=== PATIENT | male | born 1925 | race Caucasian/White ===

== ENCOUNTER 2016-07-09 13:39 | Inpatient (IN) | payer OTHER ==
[~2016-07-09] VITALS: Ht 177.8 cm; Wt 83.0 kg
[~2016-07-09 13:39] MED LIST: ALLERGY RELIE15.8 ML BOTH NARES; ALPRAZOLAM0.25 M2 PO; ALPRAZOLAM0.5 MG PO; AMBIEN5 MG PO; ASPIRIN EC325 MG PO; ASPIRIN81 M2 PO; BENTYL20 MG PO; CARBIDOPA-LEVO1 EA14 PO; CARBIDOPA-LEVO1 EA16 PO; CARDIZEM CD,CA120 MG PO; CARDIZEM SR120 MG PO; CARTIA XT120 MG PO; CEFDINIR300 MG PO; CENTRUM SILVER1 EACH PO; CIPRO500 MG PO; CLONAZEPAM0.5 MG PO; CLOPIDOGREL75 MG PO; CYMBALTA30 MG PO; CYMBALTA60 MG PO; DICYCLOMINE HCL20 MG PO; DILAUDID2 MG PO; DILTIAZEM 24HR120 MG PO; DOCUSATE SODIU100 MG PO; ENTACAPONE200 MG PO; GABAPENTIN100 MG PO; GINKGO BILOBA30 MG PO; HEPARIN SO5000 UNITS SC; HUMULIN 70100 UNIT/1 SQ; HUMULIN 70100 UNIT/2 SC; HYDROCODON-ACE1 EAC8 PO; HYDROMORPHONE HC2 MG PO; IMDUR30 MG PO; ISOSORBIDE DINI30 MG PO; KADIAN10 MG PO; KLONOPIN0.5 M1 PO; LEVEMIR100 UNIT/2 SC; LINZESS145 MCG PO; LINZESS290 MCG PO; LO-DOSE ASPIRIN81 M1 PO; LOPERAMIDE2 M1 PO; LORAZEPAM0.5 MG PO; LYRICA50 MG PO; MECLIZINE HCL25 MG PO; METOCLOPRAMIDE10 MG PO; METRONIDAZOLE500 MG PO; MEVACOR40 MG PO; MILK OF MAGNESI10 ML PO; MIRTAZAPINE7.5 MG PO; NEURONTIN100 MG PO; NOVOLOG PE100 UNITS/ SC; OMEPRAZOLE20 M2 PO; OMEPRAZOLE20 MG PO; OMEPRAZOLE40 M1 PO; PAROXETINE HCL20 MG PO; PAXIL20 MG PO; PLAVIX75 MG PO; POLYETHYLENE GL17 GM PO; PRILOSEC20 MG PO; PRIMIDONE50 MG PO; PROMETHAZINE HC25 M1 PO; PROPRANOLOL HCL10 MG PO; PROPRANOLOL HCL20 MG PO; REGLAN10 MG PO; ROPINIROLE HCL0.5 MG PO; SENOKOT,SENN1 TABLET PO; SIMVASTATIN20 MG PO; SIMVASTATIN40 MG PO; STALEVO 200 TA1 EACH PO; STALEVO PO; STOOL SOFTENER100 MG PO; TYLENOL REGULA325 MG PO; TYLENOL WITH C1 EACH PO; VICODIN ES 7.51 EAC1 PO; XANAX0.25 MG PO; ZOFRAN ODT4 MG PO; ZOFRAN4 MG PO; ZOLPIDEM TARTRAT5 MG PO
[2016-07-09 14:21] LABS: EOSINOPHIL (%) 1.1 % (0-5); EOSINOPHIL COUNT 0.1 K/uL (0-0.3); HEMATOCRIT 41.4 % (38.0-50.0); IMMATURE GRANULOCYTE (%) 0.5 % (0.0-0.7); IMMATURE GRANULOCYTE COUNT 0.1 K/uL; INSTRUMENT ABS NEUTROPHIL CT 10.2 K/uL; LYMPHOCYTE COUNT 0.8 K/uL (1.0-2.8); MCH 29.8 PG (29.0-34.0); MCHC 32.1 G/DL (30.0-36.0); MCV 92.6 FL (86-99); MEAN PLAT.VOLUME 10.6 uM^3 (9.0-12.4); MONOCYTE (%) 7.4 % (3-12); MONOCYTE COUNT 0.9 K/uL (0-0.8); NEUTROPHIL (%) 84.1 % (45-76); NEUTROPHIL COUNT 10.2 K/uL (1.8-6.4); PLATELET COUNT 192 K/uL (156-360); RBC DIS.WIDTH-CV 13.3 % (11.8-14.6); RBC DIS.WIDTH-SD 45.3 % (39-53); RED BLOOD COUNT 4.47 M/uL (4.00-5.50); WHITE BLOOD COUNT 12.1 K/uL (4.1-10.2)
[2016-07-09 14:33] LABS: CHLORIDE 106 mEq/L (99-109); POTASSIUM 5.4 mEq/L (3.7-5.4); SODIUM 139 mEq/L (136-147)
[2016-07-09 14:35] LABS: GLUCOSE 281 mg/dL (70-99)
[2016-07-09 14:37] LABS: ANION GAP 11 MEQ/L (2-14); TOTAL BILIRUBIN 0.3 mg/dL (0.0-1.0)
[2016-07-09 14:39] LABS: ALKALINE PHOSPHATASE 99 IU/L (3-129); GFR ESTIMATE (CALCULATED) 32 mL/min/
[2016-07-09 14:40] LABS: UREA NITROGEN (BUN) 41 mg/dL (9-23)
[2016-07-09 14:48] LABS: TROP-I INTERPRETATION NEGATIVE; TROPONIN-I 0.04 ng/mL (0.0-0.30)
[2016-07-09] MEDS ORDERED: FLAGYL500 MG PO (16:41)
[2016-07-09] MEDS ORDERED: CIPRO500 MG PO (16:41)
[2016-07-09] MEDS ORDERED: PROTONIX20 MG PO (16:43)
[2016-07-09] MEDS ORDERED: FLORASTOR250 MG PO (16:44)
[2016-07-09] MEDS ORDERED: CARTIA XT120 MG PO (16:45)
[2016-07-09] MEDS ORDERED: XANAX0.25 MG PO (16:47)
[2016-07-09] MEDS ORDERED: BASAGLAR K100 UNIT/1 SC ×2 (16:48→16:58)
[2016-07-09] MEDS ORDERED: MULTIVITAMIN1 EAC2 PO (16:49)
[2016-07-09] MEDS ORDERED: FLUOXETINE HCL20 MG PO (16:50)
[2016-07-09] MEDS ORDERED: FLUOXETINE HCL10 MG PO (16:50)
[2016-07-09] MEDS ORDERED: SENNA8.6 MG PO (16:51)
[2016-07-09] MEDS ORDERED: ACETAMINOPHEN325 M1 PO (16:53)
[2016-07-09] MEDS ORDERED: ROPINIROLE HCL0.5 MG PO (16:53)
[2016-07-09] MEDS ORDERED: CARBIDOPA-LEVO1 EA16 PO (16:54)
[2016-07-09] MEDS ORDERED: ATORVASTATIN CA10 MG PO (17:00)
[2016-07-09] MEDS ORDERED: MELATONIN5 M1 PO (17:00)
[2016-07-09] MEDS ORDERED: STALEVO PO (17:21)
[2016-07-09 17:43] LABS: ADD MIUA? YES; BILIRUBIN NEGATIVE; BLOOD SMALL; COLOR YELLOW ((YELLOW)); GLUCOSE (STRIP) 150; KETONES NEGATIVE; LEUKOCYTES NEGATIVE; NITRITE NEGATIVE; PROTEIN (STRIP) >=500; SPECIFIC GRAVITY 1.016 (1.000-1.030); UROBILINOGEN 0.2 MG/DL (0.2-1.0)
[2016-07-09 18:09] LABS: BACTERIA RARE /HPF; EPITHELIAL CELLS RARE /HPF; GRANULAR CASTS 0-5 /LPF; HYALINE CASTS 0-5 /LPF; MUCUS TRACE /LPF; RED BLOOD CELLS 0-5 /HPF (0-5); UCUL ADDED? NO; WHITE BLOOD CELLS 0-5 /HPF (0-5)
[2016-07-10] VITALS (8 sets, daily range): BP systolic 135–224; BP diastolic 66–120
[2016-07-10 06:36] LABS: POINT-OF-CARE METER ID UU13113725
[2016-07-10 08:43] LABS: HEMATOCRIT 40.4 % (38.0-50.0); MCH 30.2 PG (29.0-34.0); MCHC 32.9 G/DL (30.0-36.0); MCV 91.8 FL (86-99); MEAN PLAT.VOLUME 11.6 uM^3 (9.0-12.4); PLATELET COUNT 201 K/uL (156-360); RBC DIS.WIDTH-CV 13.4 % (11.8-14.6); RBC DIS.WIDTH-SD 45.7 % (39-53); WHITE BLOOD COUNT 12.2 K/uL (4.1-10.2)
[2016-07-10 09:12] LABS: ALKALINE PHOSPHATASE 95 IU/L (3-129); ANION GAP 8 MEQ/L (2-14); CHLORIDE 104 MEQ/L (99-109); GFR ESTIMATE (CALCULATED) 41 mL/min/; GLUCOSE 293 mg/dL (70-99); POTASSIUM 5.2 MEQ/L (3.7-5.4); SAMPLE HEMOLYSIS CHECK 0; SAMPLE ICTERIC CHECK 0; SAMPLE LIPEMIA CHECK 0; SODIUM 135 MEQ/L (136-147); TOTAL BILIRUBIN 0.4 MG/DL (0.0-1.0); UREA NITROGEN (BUN) 33 mg/dL (9-23)
[2016-07-11 08:08] VITALS: BP 167/77
[2016-07-11 11:45] LABS: POINT-OF-CARE METER ID UU13113725
[2016-07-11 16:29] LABS: POINT-OF-CARE METER ID UU13113725
[2016-07-11 16:30] VITALS: BP 150/70
[2016-07-11 21:02] LABS: POINT-OF-CARE METER ID UU13113725
[2016-07-12 06:10] LABS: POINT-OF-CARE METER ID UU13113725
[2016-07-12 08:23] VITALS: BP 189/89
[2016-07-12 11:44] LABS: POINT-OF-CARE METER ID UU13113725
[2016-07-12 16:46] LABS: POINT-OF-CARE METER ID UU13113725
[2016-07-12 17:23] VITALS: BP 172/87
[2016-07-12 20:57] LABS: POINT-OF-CARE METER ID UU13113725
[2016-07-13 00:29] LABS: POINT-OF-CARE METER ID UU13113725
[2016-07-13 00:54] VITALS: BP 185/87
[2016-07-13 06:35] LABS: POINT-OF-CARE METER ID UU13113725
[2016-07-13 07:03] VITALS: BP 196/91
[2016-07-13 15:34] VITALS: BP 197/108
[2016-07-13 16:00] LABS: POINT-OF-CARE METER ID UU13113725
[2016-07-13 17:00] VITALS: BP 160/78
[2016-07-14 00:11] VITALS: BP 188/85
[2016-07-14 06:37] LABS: ALKALINE PHOSPHATASE 79 IU/L (3-129); ANION GAP 6 MEQ/L (2-14); CHLORIDE 108 MEQ/L (99-109); GFR ESTIMATE (CALCULATED) 44 mL/min/; GLUCOSE 194 mg/dL (70-99); POTASSIUM 4.4 MEQ/L (3.7-5.4); SAMPLE HEMOLYSIS CHECK 0; SAMPLE ICTERIC CHECK 0; SAMPLE LIPEMIA CHECK 0; SODIUM 139 MEQ/L (136-147); TOTAL BILIRUBIN 0.4 MG/DL (0.0-1.0); UREA NITROGEN (BUN) 22 mg/dL (9-23)
[2016-07-14 06:49] LABS: EOSINOPHIL (%) 3.4 % (0-5); EOSINOPHIL COUNT 0.2 K/uL (0-0.3); HEMATOCRIT 34.4 % (38.0-50.0); IMMATURE GRANULOCYTE (%) 0.3 % (0.0-0.7); INSTRUMENT ABS NEUTROPHIL CT 4.7 K/uL; LYMPHOCYTE COUNT 1.1 K/uL (1.0-2.8); MCH 31.4 PG (29.0-34.0); MCHC 33.4 G/DL (30.0-36.0); MEAN PLAT.VOLUME 10.6 uM^3 (9.0-12.4); MONOCYTE (%) 10.8 % (3-12); MONOCYTE COUNT 0.7 K/uL (0-0.8); NEUTROPHIL (%) 69.1 % (45-76); NEUTROPHIL COUNT 4.7 K/uL (1.8-6.4); PLATELET COUNT 155 K/uL (156-360); RBC DIS.WIDTH-CV 13.7 % (11.8-14.6); RBC DIS.WIDTH-SD 47.4 % (39-53); RED BLOOD COUNT 3.66 M/uL (4.00-5.50)
[2016-07-14 06:56] VITALS: BP 179/93
[2016-07-14 06:57] LABS: WHITE BLOOD COUNT 6.8 K/uL (4.1-10.2)
[2016-07-14 12:09] VITALS: BP 130/62
[2016-07-14 15:15] VITALS: BP 128/62
[2016-07-14 16:14] LABS: POINT-OF-CARE METER ID UU13113725
[2016-07-14 22:58] VITALS: BP 169/81
[2016-07-15] VITALS (8 sets, daily range): BP systolic 119–182; BP diastolic 65–81
[2016-07-15 21:04] LABS: POINT-OF-CARE METER ID UU13113725
[2016-07-16 00:58] VITALS: BP 160/77
[2016-07-16 06:24] LABS: POINT-OF-CARE METER ID UU13113725
[2016-07-16 08:00] VITALS: BP 155/74
[2016-07-16 11:37] LABS: POINT-OF-CARE METER ID UU13113725
[2016-07-16 16:43] LABS: POINT-OF-CARE METER ID UU13113725
[2016-07-16 18:07] VITALS: BP 138/64
[2016-07-16 21:12] LABS: POINT-OF-CARE METER ID UU13113725
[2016-07-17 00:42] VITALS: BP 148/67
[2016-07-17 08:00] VITALS: BP 152/78
[2016-07-17 11:17] LABS: POINT-OF-CARE METER ID UU13113725
[2016-07-17] MEDS ORDERED: DUONEB 2.5-0.5 M3 ML AEROSOL (14:25)
[2016-07-17] MEDS ORDERED: APRESOLINE50 MG PO ×2 (14:25→14:40)
[2016-07-17] MEDS ORDERED: CARDIZEM CD,CA240 MG PO (14:26)
[2016-07-17] MEDS ORDERED: GABAPENTIN300 MG PO (14:26)
[2016-07-17] MEDS ORDERED: FLUOXETINE HCL20 MG PO (14:27)
[2016-07-17 16:00] VITALS: BP 150/71
== END 2016-07-17 17:26 | DRG 194 ==
LOC: EME 13:39 → EDOF 22:07 → 5EAST 22:07
PROVIDERS: Emergency Medicine; Internal Medicine
DX: J18.9 Pneumonia, unspecified organism (principal); G20 Parkinson's disease; E86.0 Dehydration; I10 Essential (primary) hypertension; R53.1 Weakness; E11.65 Type 2 diabetes mellitus with hyperglycemia; I47.1 Supraventricular tachycardia; K57.30 Diverticulosis of large intestine without perforation or abscess without bleeding; K58.9 Irritable bowel syndrome, unspecified; F41.9 Anxiety disorder, unspecified; F32.9 Major depressive disorder, single episode, unspecified; N28.9 Disorder of kidney and ureter, unspecified; G89.29 Other chronic pain; R10.9 Unspecified abdominal pain
CPT/HCPCS: 70450; 71020; 73564; 80053; 80202; 81003; 82565; 82948; 83605; 84439; 84443; 84484; 84520; 85025; 85027; 87040; 93005; 94640; 94640 76; 94799; 97530 GP; 99202; 99281; 99284; J0360; J0456; J0692; J1815; J2405; J2543; J3370; J7030; J7050

== ENCOUNTER 2016-09-07 13:19 | Emergency (ER) | payer OTHER ==
[~2016-09-07] VITALS: Ht 177.8 cm; Wt 75.0 kg
[~2016-09-07 13:19] MED LIST changes: +ACETAMINOPHEN325 M1 PO; +APRESOLINE50 MG PO; +ATORVASTATIN CA10 MG PO; +BASAGLAR K100 UNIT/1 SC; +CARDIZEM CD,CA240 MG PO; +DUONEB 2.5-0.5 M3 ML AEROSOL; +FLAGYL500 MG PO; +FLORASTOR250 MG PO; +FLUOXETINE HCL10 MG PO; +FLUOXETINE HCL20 MG PO; +GABAPENTIN300 MG PO; +MELATONIN5 M1 PO; +MULTIVITAMIN1 EAC2 PO; +PROTONIX20 MG PO; +SENNA8.6 MG PO
[2016-09-07 15:53] LABS: BASOPHIL COUNT 0.1 K/uL (0-0.1); EOSINOPHIL (%) 1.9 % (0-5); EOSINOPHIL COUNT 0.1 K/uL (0-0.3); IMMATURE GRANULOCYTE (%) 0.6 % (0.0-0.7); INSTRUMENT ABS NEUTROPHIL CT 4.4 K/uL; LYMPHOCYTE COUNT 1.8 K/uL (1.0-2.8); MCH 30.7 PG (29.0-34.0); MCV 93.2 FL (86-99); MEAN PLAT.VOLUME 10.2 uM^3 (9.0-12.4); MONOCYTE (%) 10.3 % (3-12); MONOCYTE COUNT 0.7 K/uL (0-0.8); NEUTROPHIL (%) 61.7 % (45-76); NEUTROPHIL COUNT 4.4 K/uL (1.8-6.4); PLATELET COUNT 199 K/uL (156-360); RBC DIS.WIDTH-CV 13.2 % (11.8-14.6); RBC DIS.WIDTH-SD 45.4 % (39-53); RED BLOOD COUNT 3.97 M/uL (4.00-5.50); WHITE BLOOD COUNT 7.2 K/uL (4.1-10.2)
[2016-09-07 16:02] LABS: CHLORIDE 107 mEq/L (99-109); POTASSIUM 4.5 mEq/L (3.7-5.4); SODIUM 135 mEq/L (136-147)
[2016-09-07 16:03] LABS: GLUCOSE 224 mg/dL (70-99)
[2016-09-07 16:05] LABS: ANION GAP 7 MEQ/L (2-14)
[2016-09-07 16:07] LABS: GFR ESTIMATE (CALCULATED) 38 mL/min/
[2016-09-07 16:08] LABS: UREA NITROGEN (BUN) 32 mg/dL (9-23)
[2016-09-07 16:15] LABS: TROP-I INTERPRETATION NEGATIVE; TROPONIN-I 0.01 ng/mL (0.0-0.30)
[2016-09-07 17:00] LABS: ADD MIUA? YES; BILIRUBIN NEGATIVE; BLOOD NEGATIVE; COLOR YELLOW ((YELLOW)); GLUCOSE (STRIP) 50; KETONES NEGATIVE; LEUKOCYTES SMALL; NITRITE NEGATIVE; PROTEIN (STRIP) >=500; SPECIFIC GRAVITY 1.012 (1.000-1.030); UROBILINOGEN 0.2 MG/DL (0.2-1.0)
[2016-09-07 17:13] LABS: BACTERIA NONE SEEN /HPF; EPITHELIAL CELLS RARE /HPF; HYALINE CASTS 0-5 /LPF; MUCUS TRACE /LPF; RED BLOOD CELLS 0-5 /HPF (0-5); UCUL ADDED? NO; WHITE BLOOD CELLS 0-5 /HPF (0-5)
[2016-09-07 21:00] VITALS: BP 166/70
== END 2016-09-07 21:18 | disposition home or self-care (01) ==
LOC: EME 13:19
PROVIDERS: Emergency Medicine
DX: R53.1 Weakness (principal); G20 Parkinson's disease; R41.82 Altered mental status, unspecified; I10 Essential (primary) hypertension; E78.5 Hyperlipidemia, unspecified; E11.9 Type 2 diabetes mellitus without complications; Z79.4 Long term (current) use of insulin; Z79.02 Long term (current) use of antithrombotics/antiplatelets
CPT/HCPCS: 70450; 71010; 80048; 81003; 84484; 85025; 93005; 99281; 99285